=== PATIENT | female | born 1970 | race African-American/Black ===

== ENCOUNTER 2016-09-23 02:52 | Emergency (ER) | payer OTHER ==
[2016-09-23] MEDS ORDERED: IPRATROPIUM/ALBUTEROL 0.5-2.5 MG/3 ML AMPUL NEB ONE ×4 (04:15→04:25)
[2016-09-23] MEDS ORDERED: METHYLPREDNISOLONE INJ 125 MG/2 ML SDV IV ONE (04:25)
[2016-09-23] MEDS ORDERED: NORMAL SALINE 1000 ML 1,000 ML IV ONE (04:26)
--- NOTE | 2016-09-23 04:27 | ER Document Report ---
ED Respiratory Problem - General Chief Complaint: Breathing Difficulty Stated Complaint: DIFFICULTY BREATHING Time seen by provider: 04:20 Notes: Patient is a 38-year-old female with a known history of asthma that comes emergency department for chief complaint of wheezing, cough, and shortness of breath. Patient states she has had a mild cough progressing over the past several days, denies fevers, has any other symptoms. Patient has never been intubated for asthma, however she has been admitted to the hospital. TRAVEL OUTSIDE OF THE [place] IN LAST 30 DAYS: No - Related Data Allergies/Adverse Reactions: dexamethasone [Dexamethasone] Allergy (Verified 10/19/15 20:33) Past Medical History - General Information source: Patient - Social History Smoking Status: Never Smoker Frequency of alcohol use: None Drug Abuse: None Lives with: Family Family History: CAD, Malignancy Pulmonary Medical History: Reports: Hx Asthma, Hx Bronchitis Psychiatric Medical History: Denies: Hx Depression Past Surgical History: Reports: Hx Breast Surgery - cyst removed from right breast - Immunizations Hx Diphtheria, Pertussis, Tetanus Vaccination: Yes Hx Pneumococcal Vaccination: 09/15/15 Review of Systems - Review of Systems Constitutional: No symptoms reported EENT: No symptoms reported Cardiovascular: No symptoms reported Respiratory: See HPI Gastrointestinal: No symptoms reported Genitourinary: No symptoms reported Female Genitourinary: No symptoms reported Musculoskeletal: No symptoms reported Skin: No symptoms reported Hematologic/Lymphatic: No symptoms reported Neurological/Psychological: No symptoms reported Physical Exam - Vital signs Vitals: Resp Pulse Ox 25 H 96 09/23/16 03:15 09/23/16 03:15 Interpretation: Normal - General General appearance: Alert, Anxious In distress: None - HEENT Head: Normocephalic, Atraumatic Eyes: Normal Conjunctiva: Normal Extraocular movements intact: Yes Eyelashes: Normal Pupils: PERRL Mucous membranes: Normal Pharynx: Normal Neck: Normal - Respiratory Respiratory status: No respiratory distress, Tachypnea. No: Respiratory distress, Labored Breath sounds: Decreased air movement, Nonproductive cough, Wheezing. No: Productive cough, Rales, Rhonchi, Stridor Chest palpation: Normal - Cardiovascular Rhythm: Regular Heart sounds: Normal auscultation Murmur: No - Abdominal Inspection: Normal Distension: No distension Bowel sounds: Normal Tenderness: Nontender. No: Tender Organomegaly: No organomegaly - Back Back: Normal, Nontender. No: Tender - Extremities General upper extremity: Normal inspection, Nontender, Normal color, Normal ROM , Normal temperature General lower extremity: Normal inspection, Nontender, Normal color, Normal ROM , Normal temperature, Normal weight bearing. No: Forrest's sign - Neurological Neuro grossly intact: Yes Cognition: Normal Orientation: AAOx4 [place] Coma Scale Eye Opening: Spontaneous [place] Coma Scale Verbal: Oriented [place] Coma Scale Motor: Obeys Commands [place] Coma Scale Total: 15 Speech: Normal Motor strength normal: LUE, RUE, LLE, RLE Sensory: Normal - Psychological Associated symptoms: Normal affect, Normal mood - Skin Skin Temperature: Warm Skin Moisture: Dry Skin Color: Normal Course - Re-evaluation Re-evalutation: Patient with no hypoxia, however she has loud wheezing both inspiratory and expiratory on examination. Very mild tachypnea. Chest x-ray unremarkable. After treatments patient reevaluated and still has weezing, ordering laboratory workup. Workup shows hypokalemia, otherwise unremarkable. On Reevaluation patient's wheezing completely resolved, tachypnea resolved, patient well-appearing and states she wants to go home. Discussed strict return precautions, patient states understanding and agreement - Vital Signs Vital signs: Temp Pulse Resp BP Pulse Ox 25 H 96 09/23/16 03:15 09/23/16 03:15 - Laboratory Result Diagrams: 09/23/16 05:40 09/23/16 05:40 Laboratory results interpreted by me: 09/23/16 09/23/16 09/23/16 05:40 05:40 05:40 Hgb 11.1 L Hct 32.2 L RDW 15.2 H Eosinophils % 14.2 H Absolute Eosinophils 1.4 H Potassium 3.0 L* BUN 6 L Glucose 151 H Magnesium 2.5 H Total Protein 6.2 L Albumin 3.2 L Discharge - Discharge Clinical Impression: Wheezing, Shortness of breath, Asthma exacerbation, Hypokalemia Condition: Stable Disposition: HOME, SELF-CARE Additional Instructions: Take the prednisone as directed, use your nebulizer every 4-6 hours as needed. Hydrate, rest. Your potassium is low, this has been supplemented, increased potassium in your diet. Return immediately for any returned or new concerning symptoms. Prescriptions: Prednisone 20 mg PO DAILY #15 tablet
[2016-09-23] MEDS: MAGNESIUM SULFATE/D5W 100 ML IV SCH ×2 (04:30→05:15)
[2016-09-23 05:54] LABS: ABSOLUTE BASOPHILS # (AUTO) 0.1 10^3/uL (0.0-0.2); ABSOLUTE EOSINOPHILS # (AUTO) 1.4 10^3/uL (0.0-0.6); ABSOLUTE LYMPHOCYTES (AUTO) 2.8 10^3/uL (0.5-4.7); ABSOLUTE MONOCYTES (AUTO) 0.9 10^3/uL (0.1-1.4); ABSOLUTE NEUT (AUTO) 4.5 10^3/uL (1.7-8.2); BASOPHILS % (AUTO) 0.6 % (0-2); EOSINOPHILS % (AUTO) 14.2 % (0-6); HEMATOCRIT 32.2 % (36.0-47.0); HEMOGLOBIN 11.1 g/dL (12.0-15.5); HGB HCT DIFFERENCE 1.1; LYMPHOCYTES % (AUTO) 28.8 % (13-45); MEAN CORPUSCULAR HEMOGLOBIN 29.3 pg (27.0-33.4); MEAN CORPUSCULAR HGB CONC 34.4 g/dL (32.0-36.0); MEAN CORPUSCULAR VOLUME 85 fl (80-97); MONOCYTES % (AUTO) 9.5 % (3-13); RED BLOOD COUNT 3.77 10^6/uL (3.72-5.28); RED CELL DISTRIBUTION WIDTH 15.2 % (11.5-14.0); SEGMENTED NEUTROPHILS % (AUTO) 46.9 % (42-78); WHITE BLOOD COUNT 9.7 10^3/uL (4.0-10.5)
[2016-09-23 06:10] LABS: ALANINE AMINOTRANSFERASE 49 U/L (9-52); ALBUMIN 3.2 g/dL (3.5-5.0); ALKALINE PHOSPHATASE 74 U/L (38-126); ANION GAP 15 (5-19); ASPARTATE AMINO TRANSFERASE 36 U/L (14-36); BILIRUBIN,TOTAL 0.2 mg/dL (0.2-1.3); BLOOD UREA NITROGEN 6 mg/dL (7-20); CALCIUM 8.4 mg/dL (8.4-10.2); CARBON DIOXIDE 23 mmol/L (22-30); CHLORIDE 102 mmol/L (98-107); CREATININE RESULT 0.79 mg/dL (0.52-1.25); GLUCOSE 151 mg/dL (75-110); SODIUM 139.6 mmol/L (137-145); TOTAL PROTEIN 6.2 g/dL (6.3-8.2)
[2016-09-23] MEDS ORDERED: POTASSIUM CHLORIDE 10 MEQ TABLET.SA PO ONE (06:16)
[2016-09-23] MEDS ORDERED: HYDROCODONE/ACETAMINOPHEN 5-325 MG 6 TAB/DSPK PO PRN (07:38)
[2016-09-23] MEDS ORDERED: ALBUTEROL SULFATE HFA (90 MCG/PUFF) 8 GM MDI (1 MDI/ER DISP) IH ONE (07:38)
[2016-09-23 08:19] VITALS: BP 137/76
== END 2016-09-23 08:22 | disposition home or self-care (01) ==
LOC: ER 02:52
DX: J45.901 Unspecified asthma with (acute) exacerbation (principal); E87.6 Hypokalemia
CPT/HCPCS: 94640 ×2; 99285; 96375; 96365; 36415; 87040; 83735; 84703; 85025; 80053; 71010; J2930; J3475; J7030; J3490; J7620

== ENCOUNTER 2016-10-02 21:57 | Inpatient (IN) | payer OTHER ==
[2016-10-02] MEDS ORDERED: MAGNESIUM SULFATE/D5W 1 GM/100 ML RTUPB IV ONE ×2 (22:03→22:56)
[2016-10-02] MEDS ORDERED: ALBUTEROL SULFATE 0.083% NEB 2.5 MG/3 ML AMPUL NEB ONE ×3 (22:06→22:54)
[2016-10-02 22:20] LABS: ABSOLUTE BASOPHILS # (AUTO) 0.1 10^3/uL (0.0-0.2); ABSOLUTE EOSINOPHILS # (AUTO) 3.3 10^3/uL (0.0-0.6); ABSOLUTE LYMPHOCYTES (AUTO) 4.3 10^3/uL (0.5-4.7); ABSOLUTE MONOCYTES (AUTO) 1.9 10^3/uL (0.1-1.4); ABSOLUTE NEUT (AUTO) 8.8 10^3/uL (1.7-8.2); BASOPHILS % (AUTO) 0.6 % (0-2); HEMATOCRIT 35.5 % (36.0-47.0); HGB HCT DIFFERENCE 0.5; LYMPHOCYTES % (AUTO) 23.4 % (13-45); MEAN CORPUSCULAR HEMOGLOBIN 29.2 pg (27.0-33.4); MEAN CORPUSCULAR HGB CONC 33.8 g/dL (32.0-36.0); MEAN CORPUSCULAR VOLUME 87 fl (80-97); MONOCYTES % (AUTO) 10.1 % (3-13); RED CELL DISTRIBUTION WIDTH 15.3 % (11.5-14.0); SEGMENTED NEUTROPHILS % (AUTO) 47.9 % (42-78); WHITE BLOOD COUNT 18.4 10^3/uL (4.0-10.5)
--- NOTE | 2016-10-02 22:32 | ER Document Report ---
ED General - General Chief Complaint: Breathing Difficulty Stated Complaint: DIFFICULTY BREATHING Cannot obtain history due to: Unstable vital signs Notes: Issues a 46-year-old female with past medical history of asthma which has required admissions to the hospital in the past but no prior intubations presents with severe respiratory distress. States that she was seen in the emergency department several days ago and completed her course of steroids as directed but this did not improve her symptoms. She is also been using an albuterol nebulizer at home without improvement. States that approximately 2 hours prior to arrival shesymptoms became dramatically worse abruptly. This prompted her to come immediately to the emergency department. History is otherwise limited secondary to patient's clinical status. TRAVEL OUTSIDE OF THE [place] IN LAST 30 DAYS: No - Related Data Allergies/Adverse Reactions: dexamethasone [Dexamethasone] Allergy (Verified 10/02/16 22:21) Past Medical History - General Information source: Patient - Social History Smoking Status: Never Smoker Frequency of alcohol use: None Drug Abuse: None Family History: CAD, Malignancy Pulmonary Medical History: Reports: Hx Asthma, Hx Bronchitis Psychiatric Medical History: Denies: Hx Depression Past Surgical History: Reports: Hx Breast Surgery - cyst removed from right breast - Immunizations Hx Diphtheria, Pertussis, Tetanus Vaccination: Yes Hx Pneumococcal Vaccination: 09/15/15 Review of Systems - Review of Systems Notes: Constitutional: Negative for fever. HENT: Negative for sore throat. Eyes: Negative for visual changes. Cardiovascular: Negative for chest pain. Respiratory: Positive for shortness of breath. Gastrointestinal: Negative for abdominal pain, vomiting or diarrhea. Positive for nausea Genitourinary: Negative for dysuria. Musculoskeletal: Negative for back pain. Skin: Negative for rash. Neurological: Negative for headaches, weakness or numbness. 10 point ROS negative except as marked above and in HPI. Physical Exam - Vital signs Vitals: Resp Pulse Ox 27 H 100 10/02/16 22:00 10/02/16 22:00 Interpretation: Tachycardic, Tachypneic Notes: PHYSICAL EXAMINATION: GENERAL: Ill in appearance and in severe respiratory distress HEAD: Atraumatic, normocephalic. EYES: Pupils equal round and reactive to light, extraocular movements intact, sclera anicteric, conjunctiva are normal. ENT: nares patent, oropharynx clear without exudates. Moderately dry mucous membranes. NECK: Normal range of motion, supple without lymphadenopathy LUNGS: Poor air movement bilaterally. Severe distress with tachypnea and 30s. Diffuse expiratory wheezing in all lung gil. HEART: Regular tachycardia without murmurs ABDOMEN: Soft, nontender, normoactive bowel sounds. No guarding, no rebound. No masses appreciated. EXTREMITIES: Normal range of motion, no pitting or edema. No cyanosis. NEUROLOGICAL: No focal neurological deficits. Moves all extremities spontaneously and on command. PSYCH: Normal mood, normal affect. SKIN: Warm, Dry, normal turgor, no rashes or lesions noted. Course - Re-evaluation Re-evalutation: 10/02/16 22:00 Patient arrives in severe respiratory distress, tripoding, poor air movement bilaterally, severe expiratory wheezing. She has pale, diaphoretic, tachycardic and hypertensive. Consistent with a severe asthma exacerbation. She was immediately placed on BiPAP and continuous albuterol and ipratropium nebulizer was placed in line of the BiPAP. IV Solu-Medrol administered. She did have significant improvement on the BiPAP in conjunction with continuous nebulizers. 2 g IV magnesium will be administered. Patient is critically ill and will require frequent reassessments. 10/02/16 2250 Patient's work of breathing on BiPAP and continuous nebulizers continues to improve. She remains wheezy but her tachypnea has mostly resolved at this point. Her respiratory rate is 23. Air movement is overall much improved. 0100-given patient's well appearance at this time, excellent air movement bilaterally, will trial off BiPAP at this time. 0200-patient is mildly wheezy but without significant increased respiratory effort. Speaking to me in complete sentences. States she feels much improved. She continues to be tachycardic. Will continue to hold off on restarting BiPAP at this time. 10/03/16 03:50 Patient has done well off BiPAP for 2 hours. Remains mildly tachypneic but has good air movement bilaterally. Continued expiratory wheezing bilaterally. She has been restarted on a continuous albuterol nebulizer at this time. Given her overall well appearance a do not believe she needs go back on BiPAP yet at this time. Given her leukocytosis and continued tachycardia, she'll be started on ceftriaxone and azithromycin. She will require admission to the hospitalist service. - Vital Signs Vital signs: Temp Pulse Resp BP Pulse Ox 25 H 100 10/02/16 23:45 10/02/16 23:45 - Laboratory Result Diagrams: 10/02/16 22:06 10/02/16 22:06 Laboratory results interpreted by me: 10/02/16 10/02/16 10/03/16 22:06 22:06 02:45 WBC 18.4 H Hct 35.5 L RDW 15.3 H Plt Count 503 H Eosinophils % 18.0 H Absolute Neutrophils 8.8 H Absolute Monocytes 1.9 H Absolute Eosinophils 3.3 H Creatine Kinase 260 H Urine Ketones 20 H Urine Blood SMALL H Urine Ascorbic Acid 20 H - Diagnostic Test Radiology reviewed: Image reviewed, Reports reviewed Radiology results interpreted by me: 10/02/16 22:32 Chest x-ray: No acute infiltrate or pneumothorax Critical Care Note - Critical Care Note Total time excluding time spent on procedures (mins): 35 Comments: Critical care time spent obtaining history from patient or surrogate, discussions with consultants, development of treatment plan with patient or surrogate, evaluation of patient's response to treatment, examination of patient , ordering and performing treatments and interventions, ordering and review of laboratory studies, re-evaluation of patient's condition, ordering and review of radiographic studies and review of old charts Discharge - Discharge Clinical Impression: Respiratory distress, Asthma exacerbation, Wheezing Condition: Fair Disposition: ADMITTED INPATIENT
[2016-10-02 22:45] LABS: ALANINE AMINOTRANSFERASE 38 U/L (9-52); ALBUMIN 4.2 g/dL (3.5-5.0); ALKALINE PHOSPHATASE 84 U/L (38-126); ANION GAP 17 (5-19); ASPARTATE AMINO TRANSFERASE 33 U/L (14-36); BILIRUBIN,TOTAL 0.3 mg/dL (0.2-1.3); BLOOD UREA NITROGEN 8 mg/dL (7-20); CALCIUM 9.6 mg/dL (8.4-10.2); CARBON DIOXIDE 22 mmol/L (22-30); CHLORIDE 104 mmol/L (98-107); CREATINE KINASE 260 U/L (30-135); CREATININE RESULT 0.88 mg/dL (0.52-1.25); POTASSIUM 3.7 mmol/L (3.6-5.0); SODIUM 142.7 mmol/L (137-145); TOTAL PROTEIN 7.2 g/dL (6.3-8.2)
[2016-10-02 22:48] LABS: GLUCOSE 94 mg/dL (75-110)
[2016-10-02] MEDS ORDERED: IPRATROPIUM BROMIDE 0.02% NEB 0.5 MG/2.5 ML AMPUL NEB ONE (22:54)
[2016-10-02 23:15] LABS: CREATINE KINASE MB 1.25 ng/mL (<4.55)
[2016-10-02 23:19] LABS: TROPONIN I < 0.012 ng/mL
[2016-10-03] MEDS ORDERED: LIDOCAINE 1% INJ-PF (10 MG/ML) 30 ML SDV ONE (00:26)
[2016-10-03] MEDS ORDERED: NORMAL SALINE 1000 ML 1,000 ML IV ONE (01:09)
[2016-10-03 03:26] LABS: APPEARANCE,URINE CLEAR; BILIRUBIN,URINE NEGATIVE (NEGATIVE); GLUCOSE, URINE NEGATIVE (NEGATIVE); KETONES,URINE 20 mg/dL (NEGATIVE); LEUKOCYTE ESTERASE,URINE NEGATIVE (NEGATIVE); NITRITE,URINE NEGATIVE (NEGATIVE); PROTEIN,URINE NEGATIVE (NEGATIVE); URINE SPECIFIC GRAVITY 1.011; UROBILINOGEN,URINE NEGATIVE mg/dL (<2.0)
[2016-10-03] MEDS ORDERED: ALBUTEROL SULFATE 0.083% NEB 2.5 MG/3 ML AMPUL NEB ONE (03:28)
[2016-10-03] MEDS ORDERED: AZITHROMYCIN 250 MG TABLET PO ONE (03:49)
[2016-10-03] MEDS ORDERED: CEFTRIAXONE 1 GM/D5W RTU 50 ML IV ONE (03:49)
[2016-10-03] MEDS ORDERED: ACETAMINOPHEN 325 MG TABLET ONE (04:02)
[2016-10-03] MEDS ORDERED: ALBUTEROL SULFATE 0.083% NEB 2.5 MG/3 ML AMPUL NEB PRN (07:24)
[2016-10-03] MEDS ORDERED: LANSOPRAZOLE 30 MG TAB.RAP.DR PO ONE (08:15)
[2016-10-03] MEDS ORDERED: METHYLPREDNISOLONE INJ 125 MG/2 ML SDV IV ONE (08:15)
[2016-10-03] MEDS: ENOXAPARIN SODIUM INJ 40 MG/0.4 ML DISP.SYRIN SUBCUT SCH (08:20)
[2016-10-03] MEDS: GUAIFENESIN SYRP 200 MG/10 ML UDC PO PRN ×2 (08:24→20:56)
[2016-10-03] MEDS: IPRATROPIUM/ALBUTEROL 0.5-2.5 MG/3 ML AMPUL NEB SCH ×3 (08:25→20:05)
--- NOTE | 2016-10-03 09:38 | PDOC H&P ---
History of Present Illness Admission Date/PCP: [facility] Patient complains of: difficulty breathing History of Present Illness: JO SIERRA is a 46 year old female with underlying asthma, with prior hospital admission for exacerbation of same, but no prior intubations , who presents to the emergency room for evaluation of above complaint. Patient has been discussed with emergency room physician who evaluated the patient. Was seen in the emergency room several days ago for difficulty breathing and was discharged home with prescription for steroids, which she took as prescribed. However, despite this, along with using her albuterol nebulizer home, her symptoms progressed. Approximately 2 hours prior to arrival here, she stated her symptoms became acutely worse. Transported by EMS. Was in significant respiratory distress upon arrival, but has responded nicely to emergency room treatment, including application of BiPAP, with patient now tolerating only nasal cannula oxygen. Continues to have a fair amount of wheezing, and is certainly not ready for discharge. States tobacco smoke is one of her triggers. Although she does not smoke herself, she did have contact recently with others who smoke. Denies fever chills, nausea vomiting, diarrhea or dysuria.. Laboratory results are listed in [employer] and are reviewed. X-ray summary results are listed below, with full report(s) reviewed. . EKG reviewed. Social history/personal habits: . Has children. Unemployed. No use of alcohol tobacco or illicit drugs. Allergies/adverse reactions are listed in [employer] and are reviewed. No problems with prednisone or Solu-Medrol. Home medications are reviewed by discussion with patient and are to be reconciled by nursing staff in [facility]. Her only prescription medication is a combination antihypertensive drug.. Home medications initially autopopulated into [employer] may not accurately reflect patient's true medications, dosages, and/or frequencies. patient not certain of all her medications/dosages/ frequencies. REVIEW OF SYSTEMS: Constitutional: No fever or chills. Eyes: No current vision complaints. ENT: No swallowing problems or complaints. No hearing problems or complaints. Pulmonary: See history and present illness. Cardiovascular: No current complaints, including chest pain. Gastrointestinal: No current complaints, including nausea or vomiting. Skin: No current complaints, including rashes. Hematologic: No unusual easy bruising or bleeding. Neurologic: No current complaints, including numbness or tingling. Musculoskeletal: No current complaints, including painful joints. Psychiatric: No current complaints, including anxiety or depression. Endocrine: No current complaints, including polyuria. Genitourinary: No current complaints, including dysuria. PHYSICAL EXAMINATION: 5 feet 5 inches tall. 96.6 kg. BMI 35.4 kg/m. Blood pressure 114/65. Pulse 126 and regular. 99% saturation on room air. Respirations are 19 and unlabored. Temperature not recorded on the chart; skin feels normothermic. Obese otherwise well-developed -[place] female appearing approximately her stated age. Pleasant awake alert and cooperative. Mildly anxious, although no agitation. Female emergency room vehicle glass technician Merlin is present. Skin is warm and dry. No grossly obvious evidence of rash in areas of skin examined. No subcutaneous nodules palpated. ENT: Hearing grossly normal to normal conversation. Tongue midline on protrusion pink and slightly tacky Eyes: No scleral icterus. Pupils equal and reactive to light at 4 mm. [place] conjunctivae. Neck is supple and nontender to gentle active range of motion and palpation. Midline trachea. No palpable thyroid nodule mass enlargement or tenderness. Lymphatic: No palpable cervical or clavicular nodes. Neck and lymphatic exams limited by patient body habitus. Psychiatric: Fair to reasonable insight into acute and chronic medical issues. Oriented to time location and why here. Slightly odd affect at times. Lungs: Auscultation reveals equal breath sounds bilaterally. No use of accessory respiratory muscles. No wheezing per se, but faint slightly coarse breath sounds diffusely bilaterally. Cardiovascular: Heart regular rate and rhythm, without gallop murmur or rub. No carotid or abdominal aortic bruits. No ankle or pedal edema. Faintly palpable dorsalis pedis pulses. Abdomen: soft, somewhat obese, nontender with positive bowel sounds. Unable to adequately evaluate abdomen for masses or organomegaly due to body habitus. Extremities: Feet are warm and dry. No calf tenderness to compression. No grossly obvious visual evidence of calf swelling. Gentle manipulation of lower extremities fails to reveal any obvious evidence of injury or instability to knees hips or ankles. Neurologic: Moves upper extremities grossly normally. Patellar reflexes absent. Absent Babinski. Light touch is intact at feet. Dorsiflexion and plantarflexion of feet 5 / 5 and symmetric. Past Medical History Cardiac Medical History: Reports: Hypertension Denies: Congestive Heart Failure, DVT, Myocardial Infarction, Hyperlipidema, Pulmonary Embolism Pulmonary Medical History: Reports: Asthma, Bronchitis EENT Medical History: Denies: Eyes, Ears, Throat Neurological Medical History: Denies: Hemorrhagic CVA, Ischemic CVA, Seizures Endocrine Medical History: Denies: Diabetes Mellitus Type 1, Diabetes Mellitus Type 2, Hyperthyroidism, Hypothyroidism Renal/ Medical History: Reports: None GI Medical History: Denies: Cirrhosis, Gastroesophageal Reflux Disease, Hepatitis, Peptic Ulcer Disease Musculoskeltal Medical History: Denies: Arthritis Skin Medical History: Denies: Eczema, Psoriasis Psychiatric Medical History: Denies: Alcohol Dependency, Depression, General Anxiety Disorder, Substance Abuse, Tobacco Dependency Hematology: Reports: None Infectious Medical History: Denies: Hepatitis B, Hepatitis C Social History Information Source: Patient, Emergency Med Personnel, OM Records Smoking Status: Never Smoker Frequency of Alcohol Use: None Hx Recreational Drug Use: No Drugs: None Hx Prescription Drug Abuse: No - Advance Directive Resuscitation Status: Full Code Surrogate healthcare decision maker:: Her mother Family History Family History: CAD, Malignancy Parental Family History Reviewed: Yes Children Family History Reviewed: Yes Sibling(s) Family History Reviewed.: Yes Medication/Allergy Home Medications: Albuterol Sulfate [Proair HFA Inhalation Aerosol 8.5 gm MDI] 2 puff IH Q6HP PRN #1 hfa.aer.[id number] 09/15/15 Hydrocodone Bit/Homatropine [Hycodan Syrup 5-1.5 mg/5 ml Ud Cup] 5 ml PO Q6HP PRN #90 ml 10/01/15 Albuterol Sulfate [Albuterol Sulfate 2.5mg/3 mL] 1 vial IH Q4 PRN #30 vial 10/07 Nebulizer [Nebulizer Machine] 1 each ASDIR PRN #1 kit 10/07/15 Fexofenadine HCl [Kalpana] 180 mg PO DAILY #60 tablet 12/15/15 Acetaminophen [Acetaminophen Extra Strength] 500 mg PO PRN PRN 10/03/16 Biotin [Biotin 1 mg Tablet] 1 tab PO DAILY 10/03/16 Ferrous Sulfate [Iron] 1 tab PO DAILY 10/03/16 Guaifenesin [Mucinex] 1 tab PO DAILY 10/03/16 Pnv95/Ferrous Fumarate/FA [ Caplet] 1 cap PO DAILY 10/03/16 Allergies/Adverse Reactions: dexamethasone [Dexamethasone] Allergy (Verified 10/03/16 07:25) Bronchospasm Physical Exam Vital Signs: Temp Pulse Resp BP Pulse Ox 16 130/71 H 96 10/03/16 06:31 10/03/16 06:31 10/03/16 06:31 Intake & Output 10/02/16 10/03/16 10/04/16 00:59 00:59 00:59 Weight 96.615 kg Results Laboratory Results: 10/02/16 22:06 10/02/16 22:06 10/02/16 10/02/16 10/02/16 22:06 22:06 22:06 WBC 18.4 H RBC 4.10 Hgb 12.0 Hct 35.5 L MCV 87 MCH 29.2 MCHC 33.8 RDW 15.3 H Plt Count 503 H Seg Neutrophils % 47.9 Lymphocytes % 23.4 Monocytes % 10.1 Eosinophils % 18.0 H Basophils % 0.6 Absolute Neutrophils 8.8 H Absolute Lymphocytes 4.3 Absolute Monocytes 1.9 H Absolute Eosinophils 3.3 H Absolute Basophils 0.1 Sodium 142.7 Potassium 3.7 Chloride 104 Carbon Dioxide 22 Anion Gap 17 BUN 8 Creatinine 0.88 Est GFR ( Amer) > 60 Est GFR (Non-Af Amer) > 60 Glucose 94 Calcium 9.6 Total Bilirubin 0.3 AST 33 ALT 38 Alkaline Phosphatase 84 Total Protein 7.2 Albumin 4.2 Serum HCG, Qual NEGATIVE Urine Color Urine Appearance Urine pH Ur Specific [place] Urine Protein Urine Glucose (UA) Urine Ketones Urine Blood Urine Nitrite Ur Leukocyte Esterase Urine RBC (Auto) 10/03/16 02:45 WBC RBC Hgb Hct MCV MCH MCHC RDW Plt Count Seg Neutrophils % Lymphocytes % Monocytes % Eosinophils % Basophils % Absolute Neutrophils Absolute Lymphocytes Absolute Monocytes Absolute Eosinophils Absolute Basophils Sodium Potassium Chloride Carbon Dioxide Anion Gap BUN Creatinine Est GFR ( Amer) Est GFR (Non-Af Amer) Glucose Calcium Total Bilirubin AST ALT Alkaline Phosphatase Total Protein Albumin Serum HCG, Qual Urine Color STRAW Urine Appearance CLEAR Urine pH 5.0 Ur Specific [place] 1.011 Urine Protein NEGATIVE Urine Glucose (UA) NEGATIVE Urine Ketones 20 H Urine Blood SMALL H Urine Nitrite NEGATIVE Ur Leukocyte Esterase NEGATIVE Urine RBC (Auto) 0 10/02/16 10/02/16 22:06 22:06 Creatine Kinase 260 H CK-MB (CK-2) 1.25 Troponin I < 0.012 NT-Pro-B Natriuret Pep 37 Impressions: Chest X-Ray 10/02/16 21:58 IMPRESSION: REACTIVE AIRWAY DISEASE VERSUS VIRAL SYNDROME. NO CONSOLIDATION. Assessment & Plan - Diagnosis (1) Abnormal chest xray Is this a current diagnosis for this admission?: YesPlan: We'll continue the Rocephin and intravenous Zithromax started by the emergency room physician. (2) Asthma exacerbation Is this a current diagnosis for this admission?: YesPlan: Patient will be admitted under asthma exacerbation protocol. Incentive spirometry twice a day. Scheduled DuoNeb's. PRN albuterol nebs Solu-Medrol Prevacid for gastritis prophylaxis. I strongly encouraged patient to notify staff should patient feel that respiratory status is worsening. Patient is a full code. I have strongly urged patient to be careful getting out of bed, to avoid a fall with injury. Knee high SCDs for DVT prophylaxis, along with subcutaneous Lovenox Impression and plans were discussed with patient, who concurs. Time spent in evaluation and management of patient: 60 minutes. (3) DVT prophylaxis Is this a current diagnosis for this admission?: Yes (4) HTN (hypertension) Qualifiers: Hypertension type: essential hypertension Qualified Code(s): I10 - Essential (primary) hypertension Is this a current diagnosis for this admission?: YesPlan: Resume home medications as appropriate once these have been determined and reviewed. - Inpatient Certification Based on my medical assessment, after consideration of the patient's comorbidities, presenting symptoms, or acuity I expect that the services needed warrant INPATIENT care.: Yes I certify that my determination is in accordance with my understanding of Medicare's requirements for reasonable and necessary INPATIENT services [42 CFR 412.3e].: Yes Medical Necessity: Need Close Monitoring Due to Risk of Patient Decompensation, Need For IV Fluids, Need For Continuous Telemetry Monitoring, Need for Nebulizer Therapy and Monitoring of Response, Need for IV Antibiotics, Risk of Complication if Not Cared For in Hospital Post Hospital Care: D/C or Transfer Summary
[2016-10-03] MEDS ORDERED: AZITHROMYCIN 500 MG in DEXTROSE 5%-WATER 250 ML IV SCH (10:00)
[2016-10-03] MEDS: PRENATAL VITAMIN W-O CA NO5/FE FUMARATE/FA CAPSULE PO SCH (10:10)
[2016-10-03] MEDS: FERROUS SULFATE 325 MG TABLET PO SCH (10:10)
[2016-10-03] MEDS: CEFTRIAXONE 1 GM/D5W RTU 50 ML IV SCH (10:10)
[2016-10-03 11:04] LABS: ABSOLUTE LYMPHOCYTES (AUTO) 1.1 10^3/uL (0.5-4.7); ABSOLUTE MONOCYTES (AUTO) 0.4 10^3/uL (0.1-1.4); ABSOLUTE NEUT (AUTO) 16.7 10^3/uL (1.7-8.2); BASOPHILS % (AUTO) 0.2 % (0-2); EOSINOPHILS % (AUTO) 0.2 % (0-6); HEMATOCRIT 34.7 % (36.0-47.0); HGB HCT DIFFERENCE -1.7; LYMPHOCYTES % (AUTO) 5.8 % (13-45); MEAN CORPUSCULAR HGB CONC 31.7 g/dL (32.0-36.0); MEAN CORPUSCULAR VOLUME 89 fl (80-97); RED BLOOD COUNT 3.92 10^6/uL (3.72-5.28); RED CELL DISTRIBUTION WIDTH 15.5 % (11.5-14.0); SEGMENTED NEUTROPHILS % (AUTO) 91.8 % (42-78); WHITE BLOOD COUNT 18.2 10^3/uL (4.0-10.5)
--- NOTE | 2016-10-03 14:52 | EKG REPORT ---
SEVERITY:- ABNORMAL ECG - SINUS TACHYCARDIA : Confirmed by: Fawn Salcedo 03-Oct-2016 14:51:53
[2016-10-03] MEDS: METHYLPREDNISOLONE INJ 125 MG/2 ML SDV IV SCH ×2 (16:30→21:06)
--- NOTE | 2016-10-03 17:00 | PDOC PROGRESS REPORT ---
Subjective Progress Note for:: 10/03/16 Subjective:: The patient is currently lying on stretcher. The patient immediately expressed concern about the condition of her room stating that the trash can was overflowed and that doors were open and that the nurse did not have enough compassion. The patient admits to wheezing and dyspnea but it does improve with nebulizer. The patient denies any nausea, vomiting, diarrhea, , dizziness , chest pain, heart palpitations, fevers, or chills. The patient has remained afebrile. Blood pressures have been in a good range. The patient voices no other concerns at this time. Review of systems: The rest of the review of systems is negative. Physical Exam Vital Signs: Temp Pulse Resp BP Pulse Ox 98.1 F 112 H 22 H 125/85 98 10/03/16 09:39 10/03/16 13:34 10/03/16 16:00 10/03/16 13:01 10/03/16 16:00 General appearance: PRESENT: no acute distress, cooperative, obese, well- developed Head exam: PRESENT: atraumatic, normocephalic Eye exam: PRESENT: conjunctiva pink, EOMI, PERRLA. ABSENT: scleral icterus Ear exam: PRESENT: normal external ear exam Mouth exam: PRESENT: moist, tongue midline Neck exam: ABSENT: carotid bruit, JVD, lymphadenopathy, thyromegaly Respiratory exam: PRESENT: decreased breath sounds, wheezes - Wheezes in upper lung gil. ABSENT: rales, rhonchi Cardiovascular exam: PRESENT: RRR. ABSENT: diastolic murmur, rubs, systolic murmur Pulses: PRESENT: normal dorsalis pedis pul Vascular exam: PRESENT: normal capillary refill GI/Abdominal exam: PRESENT: normal bowel sounds, soft. ABSENT: distended, guarding, mass, organolmegaly, rebound, tenderness Rectal exam: PRESENT: deferred Extremities exam: PRESENT: full ROM. ABSENT: calf tenderness, clubbing, pedal edema Neurological exam: PRESENT: alert, awake, oriented to person, oriented to place , oriented to time, oriented to situation, CN II-XII grossly intact. ABSENT: motor sensory deficit Psychiatric exam: PRESENT: appropriate affect, normal mood. ABSENT: homicidal ideation, suicidal ideation Skin exam: PRESENT: dry, intact, warm. ABSENT: cyanosis, rash Results Laboratory Results: 10/03/16 10:47 10/03/16 10:47 WBC 18.2 H RBC 3.92 Hgb 11.0 L Hct 34.7 L MCV 89 MCH 28.0 MCHC 31.7 L RDW 15.5 H Plt Count 435 Seg Neutrophils % 91.8 H Lymphocytes % 5.8 L Monocytes % 2.0 L Eosinophils % 0.2 Basophils % 0.2 Absolute Neutrophils 16.7 H Absolute Lymphocytes 1.1 Absolute Monocytes 0.4 Absolute Eosinophils 0.0 Absolute Basophils 0.0 Impressions: Chest X-Ray 10/02/16 21:58 IMPRESSION: REACTIVE AIRWAY DISEASE VERSUS VIRAL SYNDROME. NO CONSOLIDATION. Assessment & Plan - Diagnosis (1) Asthma exacerbation Is this a current diagnosis for this admission?: YesPlan: Place the patient on scheduled nebs as well as as needed nebulizers, steroids, and supplemental oxygen. (2) Acute hypoxemic respiratory failure Is this a current diagnosis for this admission?: Yes (3) Anxiety Is this a current diagnosis for this admission?: Yes (4) Obesity (BMI 30.0-34.9) Is this a current diagnosis for this admission?: Yes (5) DVT prophylaxis Is this a current diagnosis for this admission?: Yes - Time Time Spent with patient: on this visit including assessment, plan, physical examination, family meeting, and specialty collaboration, and patient education is 35 minutes. Time Spent with patient: 35 or more minutes Medications reviewed and adjusted accordingly: Yes Anticipated discharge: Home Within: within 24 hours Disposition: The patient is a full code. Pending patient's symptomatology and diagnostic findings will reevaluate in the a.m.
[2016-10-03] MEDS: FLUTICASONE/SALMETEROL DISKUS 250-50 MCG/DOSE IH SCH (21:08)
[2016-10-03] MEDS ORDERED: MONTELUKAST SODIUM 10 MG TABLET PO SCH (22:00)
[2016-10-04] MEDS: GUAIFENESIN SYRP 200 MG/10 ML UDC PO PRN (04:12)
[2016-10-04] MEDS: ACETAMINOPHEN 325 MG TABLET PO PRN ×2 (04:16→12:17)
[2016-10-04] MEDS: METHYLPREDNISOLONE INJ 125 MG/2 ML SDV IV SCH (05:44)
[2016-10-04] MEDS ORDERED: LANSOPRAZOLE 30 MG TAB.RAP.DR PO SCH (06:00)
[2016-10-04] MEDS: IPRATROPIUM/ALBUTEROL 0.5-2.5 MG/3 ML AMPUL NEB SCH (08:35)
[2016-10-04] MEDS: CEFTRIAXONE 1 GM/D5W RTU 50 ML IV SCH (09:28)
[2016-10-04] MEDS: PRENATAL VITAMIN W-O CA NO5/FE FUMARATE/FA CAPSULE PO SCH (09:29)
[2016-10-04] MEDS: FERROUS SULFATE 325 MG TABLET PO SCH (09:29)
[2016-10-04] MEDS: FLUTICASONE/SALMETEROL DISKUS 250-50 MCG/DOSE IH SCH (09:33)
[2016-10-04] MEDS: ENOXAPARIN SODIUM INJ 40 MG/0.4 ML DISP.SYRIN SUBCUT SCH (09:35)
[2016-10-04 12:31] VITALS: BP 119/77
--- NOTE | 2016-10-04 15:39 | PDOC DISCHARGE SUMMARY ---
General - Admit/Disc Date/PCP Admission Date/Primary Care Provider: 10/03/16 07:24 [facility] Discharge Date: 10/04/16 - Discharge Diagnosis (1) Acute asthmatic bronchitis Is this a current diagnosis for this admission?: Yes (2) Asthma exacerbation Is this a current diagnosis for this admission?: Yes (3) Acute hypoxemic respiratory failure Is this a current diagnosis for this admission?: Yes (4) Anxiety Is this a current diagnosis for this admission?: Yes (5) Obesity (BMI 30.0-34.9) Is this a current diagnosis for this admission?: Yes (6) DVT prophylaxis Is this a current diagnosis for this admission?: Yes - Additional Information Resuscitation Status: Full Code Discharge Diet: Regular Discharge Activity: Activity As Tolerated, Balance Activity w/Rest Home Medications: Albuterol Sulfate [Ventolin 0.083% Neb 2.5 mg/3 mL Ampul] 2.5 mg NEB [id number] PRN #30 vial.neb 10/04/16 Doxycycline Hyclate 100 mg PO BID #10 capsule 10/04/16 Fluticasone/Salmeterol [Advair 250-50 Diskus 14 Dose/Diskus] 1 inh IH Q12 #1 inhaler 10/04/16 Ipratropium [place] [Atrovent Hfa Inhalation Aerosol 12.9 gm Mdi] 2 puff IH QIDP PRN #1 inhaler 10/04/16 Prednisone [Deltasone 10 mg Tablet] 10 mg PO ASDIR PRN #21 tablet 10/04/16 History of Present Illness Patient complains of: Shortness of breath History of Present Illness: JO SIERRA is a 46 year old female with underlying asthma, with prior hospital admission for exacerbation of same, but no prior intubations , who presents to the emergency room for evaluation of difficulty breathing. Was seen in the emergency room several days ago for difficulty breathing and was discharged home with prescription for steroids, which she took as prescribed. However, despite this, along with using her albuterol nebulizer home, her symptoms progressed. Approximately 2 hours prior to arrival here, she stated her symptoms became acutely worse. Transported by EMS. Was in significant respiratory distress upon arrival, but has responded nicely to emergency room treatment, including application of BiPAP, with patient now tolerating only nasal cannula oxygen. Continues to have a fair amount of wheezing, and is certainly not ready for discharge. States tobacco smoke is one of her triggers. Although she does not smoke herself, she did have contact recently with others who smoke. Hospital Course Hospital Course: The patient was admitted to [facility]. The patient was placed on scheduled nebs as well as PRN nebs, steroids, and supplemental oxygen. The patient's oxygen, steroids, and nebs were titrated. Patient was noted to be producing yellow sputum. Given the length of the patient's symptoms and her failure of outpatient treatment patient was started on antibiotic coverage. The patient is able to complete sentences. Overall the patient's symptoms are much improved and the patient is ready for discharge. Physical Exam Vital Signs: Temp Pulse Resp BP Pulse Ox 98 F 97 16 119/77 100 10/04/16 12:27 10/04/16 12:27 10/04/16 12:27 10/04/16 12:27 10/04/16 12:27 Intake & Output 10/02/16 10/03/16 10/04/16 23:59 23:59 23:59 Intake Total 225 383 Balance 225 383 Weight 101.9 kg General appearance: PRESENT: no acute distress, cooperative, obese, well- developed Head exam: PRESENT: atraumatic, normocephalic Eye exam: PRESENT: conjunctiva pink, EOMI, PERRLA. ABSENT: scleral icterus Ear exam: PRESENT: normal external ear exam Mouth exam: PRESENT: moist, tongue midline Neck exam: ABSENT: carotid bruit, JVD, lymphadenopathy, thyromegaly Respiratory exam: PRESENT: decreased breath sounds, wheezes - Wheezes in upper lung gil. ABSENT: rales, rhonchi Cardiovascular exam: PRESENT: RRR. ABSENT: diastolic murmur, rubs, systolic murmur Pulses: PRESENT: normal dorsalis pedis pul Vascular exam: PRESENT: normal capillary refill GI/Abdominal exam: PRESENT: normal bowel sounds, soft. ABSENT: distended, guarding, mass, organolmegaly, rebound, tenderness Rectal exam: PRESENT: deferred Extremities exam: PRESENT: full ROM. ABSENT: calf tenderness, clubbing, pedal edema Neurological exam: PRESENT: alert, awake, oriented to person, oriented to place , oriented to time, oriented to situation, CN II-XII grossly intact. ABSENT: motor sensory deficit Psychiatric exam: PRESENT: appropriate affect, normal mood. ABSENT: homicidal ideation, suicidal ideation Skin exam: PRESENT: dry, intact, warm. ABSENT: cyanosis, rash Results Laboratory Results: 10/03/16 10:47 Impressions: Chest X-Ray 10/02/16 21:58 IMPRESSION: REACTIVE AIRWAY DISEASE VERSUS VIRAL SYNDROME. NO CONSOLIDATION. Qualifiers PATEINT BEING DISCHARGED WITH ANY OF THE FOLLOWING DIAGNOSIS?: No Plan Discharge Plan: The patient is to followup with their primary care provider, [facility], within one week for hospital followup regarding asthma exacerbation and management. Time Spent: Less than 30 Minutes
== END 2016-10-04 13:35 | disposition home or self-care (01) | DRG 202 ==
LOC: ER 21:57 → EH 10-03 07:24 → 3W 10-03 17:00
PROVIDERS: ADMIT Family Medicine; ATTEND Family Medicine
PROC: 5A09357 Assistance with Respiratory Ventilation, Less than 24 Consecutive Hours, Continuous Positive Airway Pressure (ICD-10-PCS; principal; 2016-10-02)
PROC: 3E0F73Z Introduction of Anti-inflammatory into Respiratory Tract, Via Natural or Artificial Opening (ICD-10-PCS; 2016-10-03)
DX: J45.901 Unspecified asthma with (acute) exacerbation (principal); J96.01 Acute respiratory failure with hypoxia; F41.9 Anxiety disorder, unspecified; E66.9 Obesity, unspecified; I10 Essential (primary) hypertension; Z68.37 Body mass index [BMI] 37.0-37.9, adult; Z79.899 Other long term (current) drug therapy; Z88.8 Allergy status to other drugs, medicaments and biological substances; Z80.9 Family history of malignant neoplasm, unspecified; Z82.49 Family history of ischemic heart disease and other diseases of the circulatory system
CPT/HCPCS: 36415; 71010; 80053; 81001; 82550; 82553; 83880; 84484; 84703; 85025; 87040; 87077; 87186; 87804; 93005; 93010; 94640; 94660; 94799; 96361; 96365; 96367; 99291; J0696; J1650; J2930; J3475; J3490; J7030; J7620

== ENCOUNTER → 2018-05-12 | Outpatient (CLI) | payer OTHER ==
[2018-05-12 12:10] LABS: ABSOLUTE EOSINOPHILS # (AUTO) 0.3 10^3/uL (0.0-0.6); ABSOLUTE LYMPHOCYTES (AUTO) 2.5 10^3/uL (0.5-4.7); ABSOLUTE MONOCYTES (AUTO) 0.6 10^3/uL (0.1-1.4); ABSOLUTE NEUT (AUTO) 3.2 10^3/uL (1.7-8.2); BASOPHILS % (AUTO) 0.7 % (0-2); EOSINOPHILS % (AUTO) 5.2 % (0-6); HEMATOCRIT 36.5 % (36.0-47.0); HEMOGLOBIN 12.6 g/dL (12.0-15.5); LYMPHOCYTES % (AUTO) 37.9 % (13-45); MEAN CORPUSCULAR HEMOGLOBIN 30.8 pg (27.0-33.4); MEAN CORPUSCULAR HGB CONC 34.6 g/dL (32.0-36.0); MEAN CORPUSCULAR VOLUME 89 fl (80-97); MONOCYTES % (AUTO) 8.4 % (3-13); PLATELET COUNT 335 10^3/uL (150-450); RED CELL DISTRIBUTION WIDTH 14.4 % (11.5-14.0); SEGMENTED NEUTROPHILS % (AUTO) 47.8 % (42-78); TOTAL CELLS COUNTED % (AUTO) 100 %; WHITE BLOOD COUNT 6.6 10^3/uL (4.0-10.5)
[2018-05-12 12:28] LABS: ALANINE AMINOTRANSFERASE 29 U/L (9-52); ALBUMIN 3.7 g/dL (3.5-5.0); ALKALINE PHOSPHATASE 76 U/L (38-126); ANION GAP 13 (5-19); ASPARTATE AMINO TRANSFERASE 23 U/L (14-36); BILIRUBIN,DIRECT 0.2 mg/dL (0.0-0.4); BILIRUBIN,TOTAL 0.4 mg/dL (0.2-1.3); BLOOD UREA NITROGEN 5 mg/dL (7-20); CALCIUM 8.8 mg/dL (8.4-10.2); CARBON DIOXIDE 23 mmol/L (22-30); CHLORIDE 103 mmol/L (98-107); CHOLESTEROL 158.86 mg/dL (0-200); GLUCOSE 90 mg/dL (75-110); TRIGLYCERIDES 183 mg/dL (<150)
[2018-05-12 12:34] LABS: POTASSIUM 3.9 mmol/L (3.6-5.0); VLDL CHOLESTEROL 36.6 mg/dL (10-31)
[2018-05-12 12:39] LABS: DIRECT LDL 72 mg/dL (<100)
== END ==
LOC: CCC 10:37
DX: E11.9 Type 2 diabetes mellitus without complications (principal)
CPT/HCPCS: 36415; 80053; 80061; 83036; 85025

== ENCOUNTER → 2019-01-22 | Outpatient (CLI) | payer SELFPAY | LOC: HHS 10:07 | DX: Z12.31 Encounter for screening mammogram for malignant neoplasm of breast (principal) ==

== ENCOUNTER 2019-12-28 19:43 | Emergency (ER) | payer SELFPAY ==
--- NOTE | 2019-12-28 19:52 | ER Document Report ---
ED Medical Screen (RME) - General Chief Complaint: Chest Tightness Stated Complaint: CHEST TIGHTNESS Time Seen by Provider: 12/28/19 19:49 Primary Care Provider: ADDI PARKER,NUNO [Primary Care Provider] - Follow up as needed Mode of Arrival: Ambulatory Information source: Patient Notes: 49-year-old female patient presenting to the emergency department chief c omplaint of chest pressure. Patient reports pressure in the center of her chest that began yesterday. She states she just feels "off". Patient reports that she is concerned she may have a coronavirus although she has had no exposure. She has also had no recent travel. She denies any nausea, vomiting, diarrhea or radiation of her pain. Lung sounds clear and equal bilaterally. I have greeted and performed a rapid initial assessment of this patient. A comprehensive ED assessment and evaluation of the patient, analysis of test results and completion of the medical decision making process will be conducted by additional ED providers. I have specifically instructed the patient or family members with the patient to immediately return to any nursing staff should anything change in the patient's condition or with their chief complaint. TRAVEL OUTSIDE OF THE [place] IN LAST 30 DAYS: No - Related Data Allergies/Adverse Reactions: dextromethorphan Allergy (Intermediate, Verified 10/03/16 21:24) "wheezing" bronchospasm Past Medical History - Past Medical History Cardiac Medical History: Reports: Hx Hypertension Denies: Hx Congestive Heart Failure, Hx DVT, Hx Heart Attack, Hx Hypercholesterolemia, Hx Pulmonary Embolism Pulmonary Medical History: Reports: Hx Asthma, Hx Bronchitis Neurological Medical History: Denies: Hx Seizures Endocrine Medical History: Denies: Hx Diabetes Mellitus Type 1, Hx Diabetes Mellitus Type 2, Hx Hyperthyroidism, Hx Hypothyroidism GI Medical History: Denies: Hx Cirrhosis, Hx Gastroesophageal Reflux Disease, Hx Hepatitis Musculoskeltal Medical History: Denies Hx Arthritis Skin Medical History: Denies Hx Eczema, Denies Hx Psoriasis Psychiatric Medical History: Denies: Hx Depression Infectious Medical History: Denies: Hx Hepatitis Past Surgical History: Reports: Hx Breast Surgery - cyst removed from right breast - Immunizations Hx Diphtheria, Pertussis, Tetanus Vaccination: Yes Physical Exam - Vital signs Vitals: Temp Pulse Resp BP Pulse Ox 98.6 F 93 18 152/97 H 99 12/28/19 19:47 12/28/19 19:47 12/28/19 19:47 12/28/19 19:47 12/28/19 19:47 Course - Vital Signs Vital signs: Temp Pulse Resp BP Pulse Ox 98.6 F 93 18 152/97 H 99 12/28/19 19:47 12/28/19 19:47 12/28/19 19:47 12/28/19 19:47 12/28/19 19:47 Doctor's Discharge - Discharge Referrals: [facility] [Primary Care Provider] - Follow up as needed
--- NOTE | 2019-12-28 20:26 | ER Document Report ---
ED General - General Chief Complaint: Chest Pressure Stated Complaint: CHEST TIGHTNESS Time Seen by Provider: 12/28/19 19:49 Primary Care Provider: [facility] [Primary Care Provider] - Follow up as needed Mode of Arrival: Ambulatory Notes: 49-year-old woman presents to the emergency department history of anxious and concerned. States that she is concerned that she may have picked up the coronavirus. He denies fever, cough, myalgias apparently felt like she may be developing a fever earlier tonight and took 4 Tylenol. She also complains of a tightness in her chest, nonradiating, no associated symptoms and no prior history of CAD. TRAVEL OUTSIDE OF THE [place] IN LAST 30 DAYS: No - Related Data Allergies/Adverse Reactions: dextromethorphan Allergy (Intermediate, Verified 12/28/19 20:01) "wheezing" bronchospasm Home Medications: inhaler for asthma Past Medical History - General Information source: Patient - Social History Smoking Status: Never Smoker Chew tobacco use (# tins/day): No Frequency of alcohol use: Rare Drug Abuse: None Family History: CAD, Malignancy Patient has suicidal ideation: No Patient has homicidal ideation: No - Past Medical History Cardiac Medical History: Reports: Hx Hypertension Denies: Hx Congestive Heart Failure, Hx DVT, Hx Heart Attack, Hx Hyperc holesterolemia, Hx Pulmonary Embolism Pulmonary Medical History: Reports: Hx Asthma, Hx Bronchitis Neurological Medical History: Denies: Hx Seizures Endocrine Medical History: Denies: Hx Diabetes Mellitus Type 1, Hx Diabetes Mellitus Type 2, Hx Hyperthyroidism, Hx Hypothyroidism GI Medical History: Denies: Hx Cirrhosis, Hx Gastroesophageal Reflux Disease, Hx Hepatitis Musculoskeletal Medical History: Denies Hx Arthritis Skin Medical History: Denies Hx Eczema, Denies Hx Psoriasis Psychiatric Medical History: Denies: Hx Depression Infectious Medical History: Denies: Hx Hepatitis Past Surgical History: Reports: Hx Breast Surgery - cyst removed from right breast - Immunizations Hx Diphtheria, Pertussis, Tetanus Vaccination: Yes Hx Pneumococcal Vaccination: 09/15/15 Review of Systems - Review of Systems Notes: Constitutional: Negative for fever. HENT: Negative for sore throat. Eyes: Negative for visual changes. Cardiovascular: + Chest tightness Respiratory: Negative for shortness of breath. Gastrointestinal: Negative for abdominal pain, vomiting or diarrhea. Genitourinary: Negative for dysuria. Musculoskeletal: Negative for back pain. Skin: Negative for rash. Neurological: Negative for headaches, weakness or numbness. 10 point ROS negative except as marked above and in HPI. Physical Exam - Vital signs Vitals: Temp Pulse Resp BP Pulse Ox 98.6 F 93 18 152/97 H 99 12/28/19 19:47 12/28/19 19:47 12/28/19 19:47 12/28/19 19:47 12/28/19 19:47 - Notes Notes: PHYSICAL EXAMINATION: Physical Exam: General: Well-nourished well-developed 49-year-old woman in no acute distress HEENT: NC/AT, pupils equal round and reactive to light, MM moist,nares clear, oropharynx clear, airway patent Neck: supple, no adenopathy, no masses. Good range of motion Lungs: clear, no wheezing, no rales no rhonchi CVS: Regular rate and rhythm no murmur gallop or rub Abdomen: Soft, active, nontender, no masses, no hepatosplenomegaly Ext: No edema, clubbing or cyanosis. Neuro: Alert and responsive, moving all 4 extremities on command, cranial nerves intact, no focal findings Skin: Intact no open lesions, no rash PSYCH: Normal mood, normal affect. Course - Re-evaluation Re-evalutation: 12/28/19 20:25 49-year-old patient apparently anxious and concerned about possible coronavirus infection, states that she is high risk concerned she may have contracted the illness. She is asymptomatic with regards to fever, cough, shortness of breath, myalgias. I have explained to the patient that she does not meet criteria for testing at this time. Given her complaint of chest tightness a cardiac evaluation has been started and that we will make sure that her heart is stable. The patient voices an understanding of that plan and is in agreement. - Vital Signs Vital signs: Temp Pulse Resp BP Pulse Ox 98.6 F 93 18 152/97 H 98 12/28/19 19:47 12/28/19 19:47 12/28/19 19:47 12/28/19 19:47 12/28/19 19:51 - Laboratory Result Diagrams: 12/28/19 20:11 12/28/19 20:11 Laboratory results interpreted by me: 12/28/19 12/28/19 20:11 20:11 Hct 34.2 L RDW 15.2 H Glucose 112 H Discharge - Discharge Clinical Impression: Chest tightness, Anxiety Condition: Good Disposition: HOME, SELF-CARE Additional Instructions: You were seen tonight in the ER because of your concerns regarding the coronavirus. You have no symptoms to suggest that you have been infected at this time. You will be discharged home with instructions to continue to half-way down, use a cover for your nose and mouth when out in public, keep appropriate distance. HOME CARE INSTRUCTIONS & INFORMATION: Thank you for choosing us for your medical needs. We hope you're satisfied with the care you received. After you leave, you must properly care for your problem and, at the same time, observe its progress. Any condition can change. Some illnesses can change rapidly over hours or days. If your condition worsens, return to the Emergency Department or see your physician promptly. ABOUT YOUR X-RAYS AND EKG'S: If you had an EKG or X-rays taken, they have been read by the Emergency Physician. The X-rays and EKG's will also be read by a Radiologist or Junior Accountant Bookkeeper within 24 hours. If discrepancies are noted, you will be notified by telephone. Please be certain the ED has a correct telephone number & address where you can be reached. Also, realize that some fractures or abnormalities do not show up on initial X-rays. If your symptoms continue, see your physician. ABOUT YOUR LABORATORY TEST: If you had laboratory tests, the results have been reviewed by the Emergency Physician. Some test results (for example cultures) may not be available for several days. You will be contacted if any test result shows you need additional treatment. Please be certain the ED has a correct telephone number and address where you can be reached. ABOUT YOUR MEDICATIONS: You will receive instructions on how to take your medicine on the prescription label you receive. Additional information may be provided by the Pharmacy. If you have questions afterwards, call the ED for clarification or further instructions. Some prescribed medications may cause drowsiness. Do not perform tasks such as driving a car or operating machinery without consulting your Pharmacist. If you feel you need a refill of pain medication, your condition will need re-evaluation. Please do not call for a refill of any medication. ABOUT YOUR SIGNATURE: Signature of this document acknowledges to followin. Understanding that you received emergency treatment and that you may be released before al medical problems are known or treated. Please be certain the ED has a correct phone number & address where you can be reached. 2. Acknowledgement that you will arrange for follow-up care as recommended. 3. Authorization for the Emergency Physician to provide information to your follow-up Physician in order to maximize your care. AT ANY TIME, IF YOUR SYMPTOMS CHANGE SIGNIFICANTLY OR WORSEN OR YOU DEVELOP NEW SYMPTOMS, RETURN TO THE EMERGENCY DEPARTMENT IMMEDIATELY FOR RE-EVALUATION. OUR GOAL IS TO PROVIDE EXCELLENT MEDICAL CARE! WE HOPE THAT WE HAVE MET YOUR EXPECTATIONS DURING YOUR EMERGENCY DEPARTMENT VISIT AND THAT YOU FEEL YOU HAVE RECEIVED EXCELLENT CARE! Referrals: [facility] [Primary Care Provider] - Follow up as needed
--- NOTE | 2019-12-28 20:54 | RADIOLOGY REPORT (SQ) ---
EXAM DESCRIPTION: CLINICAL HISTORY: 49 years Female chest pressure COMPARISON: Chest x-ray 10/02/2016 TECHNIQUE: Upright portable chest x-ray FINDINGS: Borderline heart size. No suspicious mediastinal widening. Mild elevation of the left hemidiaphragm. Question emphysematous changes in the upper lung gil. No acute lung pleural bone abnormalities. IMPRESSION: Chronic findings. No acute changes.
[2019-12-28 21:49] LABS: ALBUMIN 3.9 g/dL (3.5-5.0); ALKALINE PHOSPHATASE 95 U/L (38-126); ANION GAP 5 (5-19); ASPARTATE AMINO TRANSFERASE 23 U/L (14-36); BILIRUBIN,TOTAL 0.2 mg/dL (0.2-1.3); BLOOD UREA NITROGEN 11 mg/dL (7-20); CALCIUM 9.1 mg/dL (8.4-10.2); CARBON DIOXIDE 26 mmol/L (22-30); CHLORIDE 106 mmol/L (98-107); GLUCOSE 112 mg/dL (75-110); TOTAL PROTEIN 7.5 g/dL (6.3-8.2)
[2019-12-28 21:50] LABS: ABSOLUTE BASOPHILS # (AUTO) 0.1 10^3/uL (0.0-0.2); ABSOLUTE EOSINOPHILS # (AUTO) 0.3 10^3/uL (0.0-0.6); ABSOLUTE LYMPHOCYTES (AUTO) 2.4 10^3/uL (0.5-4.7); ABSOLUTE MONOCYTES (AUTO) 0.8 10^3/uL (0.1-1.4); ABSOLUTE NEUT (AUTO) 4.2 10^3/uL (1.7-8.2); EOSINOPHILS % (AUTO) 4.2 % (0-6); HEMATOCRIT 34.2 % (36.0-47.0); LYMPHOCYTES % (AUTO) 30.4 % (13-45); MEAN CORPUSCULAR HEMOGLOBIN 30.4 pg (27.0-33.4); MEAN CORPUSCULAR HGB CONC 34.9 g/dL (32.0-36.0); MEAN CORPUSCULAR VOLUME 87 fl (80-97); PLATELET COUNT 433 10^3/uL (150-450); RED BLOOD COUNT 3.93 10^6/uL (3.72-5.28); RED CELL DISTRIBUTION WIDTH 15.2 % (11.5-14.0); SEGMENTED NEUTROPHILS % (AUTO) 54.4 % (42-78); TOTAL CELLS COUNTED % (AUTO) 100 %; WHITE BLOOD COUNT 7.7 10^3/uL (4.0-10.5)
[2019-12-28] MEDS ORDERED: KETOROLAC TROMETHAMINE INJ/PF 30 MG/1 ML SDV IV ONE (22:20)
[2019-12-28 23:35] VITALS: BP 140/90
--- NOTE | 2019-12-29 08:43 | EKG REPORT ---
SEVERITY:- ABNORMAL ECG - ATRIAL FLUTTER/FIBRILLATION, A-RATE 254 LVH BY VOLTAGE : Confirmed by: Altagracia Hare MD 29-Dec-2019 08:42:46
== END 2019-12-28 23:29 | disposition home or self-care (01) ==
LOC: ER 19:43
DX: R07.89 Other chest pain (principal); F41.9 Anxiety disorder, unspecified; I10 Essential (primary) hypertension
CPT/HCPCS: 93005; 99284; 96374; 36415; 85025; 80053; 84484; 71045; 93010; J1885